=== PATIENT | female | born 1955 | race Caucasian/White ===

== ENCOUNTER 2016-11-24 13:47 | Emergency (ER) | payer OTHER ==
[2016-11-24 13:54] VITALS: BP 180/88
--- NOTE | 2016-11-24 14:25 | ED Physician Documentation ---
PD HPI BACK INJURY - Stated complaint Stated Complaint: BACK PX - History obtained from History obtained from: Patient - History of Present Illness Type of injury: Other (Lifting furniture yesterday, developed severe low back pain radiating into the right lateral thigh, a sharp pain. She's never had this before. Denies weakness, numbness, or tingling in the saddle area or groin. There is no incontinence or fevers. Initially said she took an over-the -counter medications and one of her daughters muscle relaxers which didn't help. She doesn't know and a muscle relaxer she took. Of note initially said she's only to toug-lmu-jypwaar medications, after review of her TRISTAN E. form she is getting 112 Vicoprofen a month for joint pains.) Review of Systems Constitutional: denies: Fever, Chills GI: denies: Abdominal Pain, Nausea, Vomiting : denies: Dysuria, Frequency Skin: denies: Rash, Abrasion (s) PD PAST MEDICAL HISTORY - Past Medical History Cardiovascular: None Respiratory: None Neuro: Headache/migraine Endocrine/Autoimmune: None GI: None [employer]: Other : None HEENT: Chronic vision loss Psych: None Musculoskeletal: Osteoarthritis Derm: None - Past Surgical History Past Surgical History: Yes General: Appendectomy, Colonoscopy HEENT: Tonsil/Adenoidectomy - Present Medications Home Medications: Ambulatory Orders Medication Instructions Recorded Confirmed Lisinopril 20 mg PO DAILY 11/24/16 11/24/16 diazePAM [Valium] 5 mg PO TID PRN #15 tablet 11/24/16 oxyCODONE [Roxicodone] 1 tab PO Q6H PRN #10 tablet 11/24/16 - Allergies Allergies/Adverse Reactions: Allergies Allergy/AdvReac Type Severity Reaction Status Date / Time ondansetron HCl * Allergy Unknown Verified 11/24/16 13:54 [From Zofran (as hydrochloride)] steroids Allergy Unknown Uncoded 11/24/16 13:55 - Social History Does the pt smoke?: No Smoking Status: Former smoker Does the pt drink ETOH?: No Does the pt have substance abuse?: No - Immunizations Immunizations are current?: Yes PD ED PE NORMAL - Vitals Vital signs reviewed: Yes - General General: Alert and oriented X 3, Other (Tearful, laying right lateral decubitus. ) - Respiratory Respiratory: No respiratory distress, Clear bilaterally - Abdomen Abdomen: Soft, Non tender - Back Back: No spinal TTP - Extremities Extremities: Other (Mildly diminished sensation over the lateral calf on the right, otherwise equal sensation throughout the legs, symmetric patellar and Babinski reflexes.) - Neuro Neuro: Alert and oriented X 3, Normal speech Results - Vitals Vitals: Vital Signs - 24 hr 11/24/16 13:51 Temperature 36.7 C Heart Rate 82 Respiratory 22 Rate Blood Pressure 180/88 H O2 Saturation 98 Oxygen O2 Source Room air PD MEDICAL DECISION MAKING - ED course ED course: No medications here as she is driving. Initially prescribed steroid along the pain medications and Valium. 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 A little concerning that initially she told me she's only tried dvxd-bwl-klqdjrj pain medications, but ART MODEL/TRISTAN E. shows that she is getting Vicoprofen monthly period and asked that she did admit to and said she forgot about those., They didn't help. Departure - Departure Disposition: 01 Home, Self Care Clinical Impression: Lumbar radiculopathy, acute Condition: Good Record reviewed to determine appropriate education?: Yes Instructions: ED Sciatica Follow-Up: Huber Springer DO [Provider Admit Priv/Credential] - Within 3 Days Prescriptions: oxyCODONE [Roxicodone] 1 tab PO Q6H PRN #10 tablet PRN Reason: Pain diazePAM [Valium] 5 mg PO TID PRN #15 tablet PRN Reason: Spasms Comments: Your blood pressure was elevated today on check in to the emergency department. This does not mean that you have hypertension, it is a common phenomenon to check into the emergency department and have elevated blood pressure. I recommend that you see your primary care physician within the week to have it rechecked when you're feeling better. Do not drink or drive while on narcotic pain medicine. Note that many narcotic pain relievers also contain tylenol/acetaminophen. Please ensure that your total dose of acetaminophen from all sources does not exceed 3 grams (3000mg) per day. You may constipated on this medication, take a stool softener such as "Colace" twice a day while you are on it. Also recommend a ztkb-igt-sxbfsqw laxative such as senna or MiraLAX any day that you do not have a bowel movement. If you received narcotic pain medication in the emergency department, do not drive or operate machinery for the next 24 hours. Forms: Activity restrictions
== END 2016-11-24 14:37 | disposition home or self-care (01) ==
LOC: ED 13:47
DX: M54.16 Radiculopathy, lumbar region (principal); R03.0 Elevated blood-pressure reading, without diagnosis of hypertension; X50.0XXA Overexertion from strenuous movement or load, initial encounter; Y93.E6 Activity, residential relocation; M19.90 Unspecified osteoarthritis, unspecified site; Z87.891 Personal history of nicotine dependence
CPT/HCPCS: 99283

== ENCOUNTER 2017-10-03 10:59 | Outpatient (CLI) | payer OTHER ==
--- NOTE | 2017-10-03 13:35 | XRAY Report ---
THREE VIEW RIGHT ANKLE: 10/03/2017 CLINICAL INDICATION: Pain. FINDINGS: AP, lateral, oblique views of the right ankle demonstrate a minimally displaced remote avulsion fracture from the medial malleolus and posterior malleolus. Mild osteoarthritic changes are noted. No acute fracture or dislocation is seen. IMPRESSION: REMOTE TINY AVULSION FRAGMENTS FROM THE MEDIAL AND POSTERIOR MALLEOLI, BUT NO EVIDENCE OF ACUTE FRACTURE OR DISLOCATION. TD: 10/03/2017 13:34
--- NOTE | 2017-10-03 13:50 | XRAY Report ---
THREE VIEW LEFT KNEE: 10/03/2017 CLINICAL INDICATION: Pain. FINDINGS: AP, lateral, oblique views of the left knee demonstrate no evidence of fracture or dislocation. The joint spaces are preserved. No effusion is seen. IMPRESSION: NORMAL LEFT KNEE. TD: 10/03/2017 13:49
== END 2017-10-03 11:00 | disposition home or self-care (01) ==
LOC: DI 10:59
PROVIDERS: ATTEND Family Medicine
DX: M25.562 Pain in left knee (principal); M19.071 Primary osteoarthritis, right ankle and foot

== ENCOUNTER 2019-03-25 13:54 | Outpatient (CLI) | payer MEDICARE, OTHER ==
--- NOTE | 2019-03-26 08:17 | Mammography Report ---
Reason: SCREENING MAMMO Procedure Date: 03/25/2019 Accession Number: [id number] / [id number] Procedure: JONNY - Screening Mammo w/Cas CPT Code: FULL RESULT: EXAM: Screening Mammo w/Cas DATE: 03/25/2019 2:35 PM CLINICAL HISTORY: Screening encounter. Family history of breast cancer in a sister at the age of 60. TECHNIQUE: (B) - Bilateral CC and MLO views were obtained. Left laterally exaggerated CC view is obtained. COMPARISON: 11/14/2014 through 04/06/2010. PARENCHYMAL PATTERN: (A) - The breast(s) demonstrate(s) scattered fibroglandular densities. FINDINGS: There are coarse typically benign calcifications. There are no suspicious masses, calcifications, or areas of distortion. IMPRESSION: Benign findings. BI-RADS category 2. RECOMMENDATION: (ANNUAL) - Recommend routine annual screening mammography. BI-RADS CATEGORY: (2) - Benign Findings. STANDARD QUALIFYING STATEMENTS: 1. This examination was not reviewed with the aid of Computer-Aided Detection (CAD). 2. A negative or benign imaging report should not preclude biopsy if clinically suspicious findings are present. 3. Dense breasts may obscure an underlying neoplasm. 4. This examination was reviewed with the aid of 3D breast imaging (tomosynthesis).
== END 2019-03-25 13:55 | disposition home or self-care (01) ==
LOC: DI 13:54
PROVIDERS: ATTEND Family Medicine
DX: Z12.31 Encounter for screening mammogram for malignant neoplasm of breast (principal); Z80.3 Family history of malignant neoplasm of breast
CPT/HCPCS: 77063; 77067

== ENCOUNTER 2019-03-25 13:58 | Outpatient (CLI) | payer MEDICARE, OTHER ==
--- NOTE | 2019-03-26 08:40 | DEXA Report ---
Reason: POST MENOPAUSAL Procedure Date: 03/25/2019 Accession Number: [id number] / [id number] Procedure: DEX - Dexa Spine and/or Hip CPT Code: FULL RESULT: EXAM: Dexa Spine and/or Hip DATE: 03/25/2019 2:45 PM CLINICAL HISTORY: POST MENOPAUSAL TECHNIQUE: Dual energy x-ray absorptiometry (DXA) was performed on a [facility]. Regions measured are the AP Spine, femoral neck, and if needed forearm. COMPARISON: None. In accordance with the International Society for Clinical Densitometry (ISCD) guidelines, data from previous exams may be reanalyzed using current recommendations and techniques. This is done to allow a more accurate basis for comparison with the current study. FINDINGS: The data for the lumbar spine is as follows: BMD (g/cm/cm) T-SCORE Z-SCORE REGION L1 1.147 0.1 1.5 L2 1.220 0.2 1.5 L3 1.372 1.4 2.7 L4 1.329 1.1 2.4 TOTAL 1.277 0.8 2.1 NOTE: All evaluable vertebrae are used for classification The data for the hip is as follows: BMD (g/cm/cm) T-SCORE Z-SCORE REGION Neck 0.977 -0.4 0.8 TOTAL 0.995 -0.1 0.9 NOTE: The femoral neck or total proximal femur, whichever is lowest, is used for classification. IMPRESSION: THE WHO CLASSIFICATION BASED ON THE INTERNATIONAL REFERENCE STANDARD IS NORMAL. THE FRACTURE RISK IS NOT INCREASED. RECOMMENDATION: Patients with diagnosis of osteoporosis or osteopenia should have regular bone mineral density assessment. For those eligible for Medicare, routine testing is allowed once every 2 years. Testing frequency can be increased for patients who have rapidly progressing disease or for those who are receiving medical therapy to restore bone mass. COMMENT: World Health Organization (WHO) definitions for osteoporosis and osteopenia: NORMAL BMD: T-score at -1.0 or higher, fracture risk is low OSTEOPENIA BMD: T-score between -1.0 and -2.5, fracture risk is increased. OSTEOPOROSIS BMD: T-score at -2.5 or lower, fracture risk is high. National Osteoporosis Foundation recommends: 1. Obtain adequate dietary calcium (at least 1200 mg per day) and vitamin D (400-800 international units per day). 2. Participate, as appropriate, in regular weightbearing and muscle-strengthening exercise. 3. Avoid tobacco use and reduce alcohol and caffeine intake. 4. For more detailed information see the website at www.NOF.org.
== END 2019-03-25 13:59 | disposition home or self-care (01) ==
LOC: DI 13:58
PROVIDERS: ATTEND Family Medicine
DX: Z13.820 Encounter for screening for osteoporosis (principal); N95.8 Other specified menopausal and perimenopausal disorders
CPT/HCPCS: 77080

== ENCOUNTER 2020-06-30 14:34 | Outpatient (CLI) | payer MEDICARE, OTHER ==
--- NOTE | 2020-07-03 09:47 | Mammography Report ---
BILATERAL DIGITAL SCREENING MAMMOGRAM 3D/2D: 06/30/2020 CLINICAL: Routine screening. Comparison is made to exams dated: 03/25/2019 mammogram, 11/22/2014 mammogram, 04/30/2011 mammogram, an d 04/06/2010 mammogram - [facility]. There are scattered fibroglandular elements in both breasts. No significant masses, calcifications, or other findings are seen in either breast. There has been no significant interval change. IMPRESSION: NEGATIVE There is no mammographic evidence of malignancy. A 1 year screening mammogram is recommended. This exam was interpreted at Station ID: [id number]. NOTE: For mammograms, a report in lay terms will be sent to the patient. Approximately 15% of breast malignancies will not be visualized mammographically. In the management of a palpable breast mass, a negative mammogram must not discourage biopsy of a clinically suspicious lesion. Electronically Signed By: Pawan Maldonado M.D. aty/penrad:06/30/2020 17:19:47 ACR BI-RADS Category 1: Negative 3341F PARENCHYMAL PATTERN: (A) - The breast(s) demonstrate(s) scattered fibroglandular densities. BI-RADS CATEGORY: (1) - 1 RECOMMENDATION: (ANNUAL) - Recommend routine annual screening mammography. [id number] 1 year screening LATERALITY: (B)
== END 2020-06-30 14:35 | disposition home or self-care (01) ==
LOC: DI.N 14:34
PROVIDERS: ATTEND Family Medicine
DX: Z12.31 Encounter for screening mammogram for malignant neoplasm of breast (principal)

== ENCOUNTER 2020-09-06 14:32 | Outpatient (CLI) | payer MEDICARE, OTHER ==
--- NOTE | 2020-09-06 16:18 | MRI Report ---
PROCEDURE: Lumbar Spine W/O INDICATIONS: RT SCIATICA TECHNIQUE: Noncontrast sagittal T1 spin echo and T2 fast echo, sagittal STIR, axial T1 and T2 fast spin echo thr ough the lumbar spine. COMPARISON: None. FINDINGS: Image quality: Excellent. Alignment and Curvature: No plain films are available for comparison. Thus, for numbering purposes, 5 lumbar type vertebral bodies will be presumed for the current report. This should be confirmed with plain film correlation prior to any lumbar spinal intervention. There is mild grade 1 retrolisthesis of L2 on L3 and L5 on S1. . Bone Marrow: Marrow is of normal overall signal. No acute vertebral body compression fractures. Mo derate reactive signal within the end plates adjacent to the L5-S1 intervertebral disc. Mild reactive signal within the end plates adjacent to the T11-T12, T12-L1, L1-L2, L2-L3, L3-L4, and L4-L5 interve rtebral discs. Spinal Cord: Conus medullaris terminates at the L1-L2 disc space level. Visualized cord demonstrate s normal signal and size. Paraspinous Soft Tissues: No paravertebral masses. T12-L1: Moderate disc height loss and desiccation. Mild diffuse disc bulge. Mild facet and ligament flavum hypertrophy. Mild canal stenosis. Moderate right and mild left foraminal stenosis. L1-L2: Mild disc height loss. Moderate disc desiccation. Mild diffuse disc bulge. Mild facet and l igament flavum hypertrophy. Mild canal stenosis. Mild bilateral foraminal stenosis. L2-L3: Mild disc height loss. Moderate disc desiccation. Mild diffuse disc bulge with superimposed left and right far lateral protrusions. Mild bilateral facet and ligament flavum hypertrophy. Modera te canal stenosis. Moderate bilateral foraminal stenosis. L3-L4: Moderate disc desiccation. Mild diffuse disc bulge. Moderate facet and ligament flavum hyper trophy. Mild epidural lipomatosis. Moderate canal stenosis. Moderate bilateral foraminal stenosis. L4-L5: Moderate disc desiccation. Mild diffuse disc bulge. Moderate facet and ligament flavum hyper trophy. Mild epidural lipomatosis. Moderate canal stenosis. Moderate bilateral foraminal stenosis. L5-S1: Moderate disc height loss and desiccation. Moderate diffuse disc bulge. Moderate facet and l igament flavum hypertrophy. Mild canal stenosis. Severe right greater than left foraminal stenosis wi th right greater than left intraforaminal L5 nerve root compression. IMPRESSION: 1. Multilevel degenerative disc and facet disease, in addition to epidural lipomatosis and ligamentum flavum hypertrophy. 2. Multilevel canal stenoses, worst at L2-L3, L3-L4, and L4-L5, where there are moderate canal stenos es present. 3. Multilevel foraminal stenoses, worst at L5-S1 where there is associated intraforaminal nerve root compression as described above. Recommend correlation with clinical symptoms to ascertain relevance o f these findings. 4. Plain film correlation is recommended for numbering purposes prior to any lumbar spinal interventi on. Reviewed by: Zev Suárez MD on 09/06/2020 4:16 PM PST Approved by: Zev Suárez MD on 09/06/2020 4:16 PM PST Station ID: [id number]
== END 2020-09-06 14:33 | disposition home or self-care (01) ==
LOC: DI 14:32
PROVIDERS: ATTEND Family Medicine
DX: M47.815 Spondylosis without myelopathy or radiculopathy, thoracolumbar region (principal); M51.35 Other intervertebral disc degeneration, thoracolumbar region; M48.05 Spinal stenosis, thoracolumbar region; M47.816 Spondylosis without myelopathy or radiculopathy, lumbar region; M51.36 Other intervertebral disc degeneration, lumbar region; M48.061 Spinal stenosis, lumbar region without neurogenic claudication; M51.26 Other intervertebral disc displacement, lumbar region; E88.2 Lipomatosis, not elsewhere classified